=== PATIENT | female | born 1990 | race Caucasian/White ===

== ENCOUNTER → 2018-11-18 | Outpatient (CLI) | payer SELFPAY ==
[~2018-11-18] MED LIST: ADDERALL30 MG PO; BUSPAR5 MG PO; PRENATAL; PROAIR HFA0.09 MG/AC; STRATTERA 40MG40 MG PO; VENTOLIN0.09 MG IH; WELLBUTRIN SR150 M1 PO
== END ==
LOC: COL.RAD 13:15
DX: M47.814 Spondylosis without myelopathy or radiculopathy, thoracic region (principal)

== ENCOUNTER 2019-01-20 21:12 | Emergency (ER) | payer MEDICAID ==
[~2019-01-20] VITALS: Ht 160 cm; Wt 65.0 kg
[2019-01-20 21:27] VITALS: BP 135/82; TEMP 98.9
[2019-01-20 22:57] LABS: BASO % 0.3 % (0.0-2.0); EOS # 0.1 (0.0-0.7); EOS % 1.1 % (0-4.0); GRAN # 5.9 (1.4-6.5); GRAN % 60.8 % (42.2-75.2); HEMATOCRIT 42.2 % (37.0-47.0); MEAN CELL VOLUME 87 fl (80.0-100.0); MEAN CORPUSCULAR HEMOGLOBIN 29 pg (27.0-31.0); MEAN CORPUSCULAR HGB CONC 33 g/dl (33.0-37.0); MEAN PLATELET VOLUME 8.8 fl (7.4-10.4); MONO # 0.6 (0.1-0.6); MONO % 6.5 % (1.7-9.3); PLATELET COUNT 281 K/mm3 (130-400); RED BLOOD COUNT 4.84 M/mm3 (4.10-5.30)
[2019-01-20 23:13] LABS: ALANINE AMINOTRANSFERASE 44 U/L (9-52); ALBUMIN 3.9 gm/dL (3.5-5.0); ALKALINE PHOSPHATASE 112 U/L (50-136); ANION GAP 9 mmol/L (7-16); AST,SGOT 54 U/L (15-37); BILIRUBIN,TOTAL 0.5 mg/dL (0.0-1.0); BLOOD UREA NITROGEN 7 mg/dL (7-17); CALCIUM 9.3 mg/dL (8.4-10.2); CARBON DIOXIDE 29 mmol/L (22-30); CHLORIDE 100 mmol/L (98-107); CREATININE, serum 0.45 mg/dL (0.52-1.25); GLUCOSE 93 mg/dL (74-106); POTASSIUM 4.3 mmol/L (3.4-5.0); SODIUM 138 mmol/L (137-145); TOTAL PROTEIN 7.3 gm/dL (6.4-8.2)
[2019-01-20 23:14] LABS: C-REACTIVE PROTEIN < 0.5 mg/dL (0.0-0.9)
[2019-01-21] MEDS ORDERED: DOXYCYCLINE 10100 MG PO (03:00)
[2019-01-21] MEDS ORDERED: OMNICEF 300MG300 MG PO (03:00)
[2019-01-21 03:30] VITALS: PULSE 106
== END 2019-01-21 03:30 | disposition home or self-care (01) ==
LOC: COL.ER 21:12
PROVIDERS: Physician Assistant
DX: L02.414 Cutaneous abscess of left upper limb (principal); L03.116 Cellulitis of left lower limb; F17.210 Nicotine dependence, cigarettes, uncomplicated; Z96.22 Myringotomy tube(s) status
CPT/HCPCS: A4216; J0696

== ENCOUNTER 2019-01-24 01:35 | Emergency (ER) | payer MEDICAID ==
[~2019-01-24] VITALS: Ht 160 cm; Wt 65.0 kg
[~2019-01-24 01:35] MED LIST changes: +DOXYCYCLINE 10100 MG PO; +OMNICEF 300MG300 MG PO
[2019-01-24 01:43] VITALS: BP 142/80; TEMP 97.8
[2019-01-24 02:26] VITALS: PULSE 110
== END 2019-01-24 02:20 | disposition home or self-care (01) ==
LOC: COL.ER 01:35
DX: Z48.01 Encounter for change or removal of surgical wound dressing (principal); F17.210 Nicotine dependence, cigarettes, uncomplicated

== ENCOUNTER → 2019-01-25 | Outpatient (CLI) | payer MEDICAID | LOC: MHCPAIN 15:05 | DX: G89.29 Other chronic pain (principal); M47.814 Spondylosis without myelopathy or radiculopathy, thoracic region | CPT/HCPCS: G0463 ==

== ENCOUNTER 2021-06-04 21:47 | Emergency (ER) | payer OTHER ==
[~2021-06-04] VITALS: Ht 167.6 cm; Wt 72.7 kg
[~2021-06-04 21:47] MED LIST changes: +DOXYCYCLINE HY100 MG PO; +FLEXERIL 1010 MG/TAB PO
[2021-06-04 21:54] VITALS: TEMP 98.1
[2021-06-04 22:38] LABS: COLLECTION METHOD CLEAN CATCH
[2021-06-04 22:52] LABS: MUCOUS Present /lpf; PH 5 (5-8); TRICYCLIC ANTIDEPRESS URINE NEGATIVE; URINE APPEARANCE Cloudy; URINE BACTERIA None Seen /hpf; URINE BILIRUBIN Positive (NEGATIVE); URINE BLOOD 3+ (NEGATIVE); URINE COLOR Amber; URINE GLUCOSE Negative (NEGATIVE); URINE KETONE Trace (NEGATIVE); URINE LEUKOCYTE ESTERASE Trace (NEGATIVE); URINE NITRATE Negative (NEGATIVE); URINE PROTEIN(semi-quant) 2+ (NEGATIVE); URINE RBC >50 /hpf
[2021-06-04 23:02] LABS: BASO % 0.3 % (0.0-2.0); EOS # 0.2 (0.0-0.7); EOS % 1.5 % (0-4.0); GRAN # 7.4 (1.4-6.5); GRAN % 63.3 % (42.2-75.2); HEMOGLOBIN 12.2 g/dl (12.5-16.0); LYMPH # 3.4 (1.2-3.4); LYMPH % 29.4 % (20.0-51.0); MEAN CELL VOLUME 90 fl (80.0-100.0); MEAN CORPUSCULAR HEMOGLOBIN 30 pg (27.0-31.0); MEAN CORPUSCULAR HGB CONC 33 g/dl (33.0-37.0); MEAN PLATELET VOLUME 8.6 fl (7.4-10.4); MONO # 0.6 (0.1-0.6); PLATELET COUNT 345 K/mm3 (130-400); RED BLOOD COUNT 4.07 M/mm3 (4.10-5.30); REDCELL DISTRIBUTION WIDTH-CV 12.5 % (11.5-14.5)
[2021-06-04 23:11] LABS: HEMATOCRIT 36.8 % (37.0-47.0)
[2021-06-04 23:27] LABS: ALANINE AMINOTRANSFERASE 15 U/L (4-34); ALBUMIN 3.9 gm/dL (3.5-5.0); ALKALINE PHOSPHATASE 58 U/L (50-136); ANION GAP 6 mmol/L (7-16); AST,SGOT 23 U/L (15-37); BILIRUBIN,TOTAL 0.3 mg/dL (0.0-1.0); BLOOD UREA NITROGEN 6 mg/dL (7-17); CALCIUM 9.4 mg/dL (8.4-10.2); CARBON DIOXIDE 27 mmol/L (22-30); CHLORIDE 108 mmol/L (98-107); CREATININE, serum 0.65 (0.52-1.25); GLUCOSE 98 mg/dL (74-106); POTASSIUM 3.7 mmol/L (3.4-5.0); SODIUM 141 mmol/L (137-145); TOTAL PROTEIN 7.1 gm/dL (6.4-8.2)
[2021-06-04 23:30] VITALS: BP 121/73; PULSE 102
[2021-06-04 23:39] LABS: ACETAMINOPHEN < 10 ug/mL (10-30); ALCOHOL(ethanol),MEDICAL < 10 mg/dL; SALICYLATE < 1.0 mg/dL
== END 2021-06-04 23:30 | disposition home or self-care (01) ==
LOC: COL.ER 21:47
PROVIDERS: Nurse Practitioner
DX: F15.951 Other stimulant use, unspecified with stimulant-induced psychotic disorder with hallucinations (principal); F17.210 Nicotine dependence, cigarettes, uncomplicated